=== PATIENT | female | born 1945 | race Caucasian/White ===

== ENCOUNTER 2019-03-21 10:50 | Day surgery (SDC) | payer MEDICARE, BC ==
[~2019-03-21] VITALS: Ht 154.9 cm; Wt 54.5 kg
[2019-03-21] VITALS (16 sets, daily range): BP systolic 100–125; BP diastolic 53–77
[~2019-03-21 10:50] MED LIST: CYAN10006 SQ; FOLI0.4T2 PO; LORA0.5T PO; MULT-1085 PO
[2019-03-21] MEDS ORDERED: normal saline 1000ml 1,000 ML IV SCH ×2 (11:05→14:04)
[2019-03-21] MEDS ORDERED: HYDR-3964 PO (11:19)
[2019-03-21 11:53] LABS: BASOPHILS % (AUTO) 0.5 % (0-1); EOSINOPHILS # (AUTO) 0.1 X10'3 (0-0.9); EOSINOPHILS % (AUTO) 1.2 % (0-6); HEMATOCRIT 34.9 % (35.0-45.0); HEMOGLOBIN 12.1 g/dl (12.0-16.0); LYMPHOCYTES # (AUTO) 1.3 X10'3 (1.1-4.8); LYMPHOCYTES % (AUTO) 29.7 % (21-51); MEAN CORPUSCULAR HEMOGLOBIN 32.6 PG (27.0-31.0); MEAN CORPUSCULAR HGB CONC 34.8 g/dL (33.0-36.5); MEAN CORPUSCULAR VOLUME 93.7 FL (78-98); MONOCYTES # (AUTO) 0.4 X10'3 (0-0.9); NEUTROPHILS # (AUTO) 2.7 X10'3 (1.8-7.7); NEUTROPHILS % (AUTO) 60.6 % (42-75); PLATELET COUNT 279 X10'3 (140-440); RED BLOOD COUNT 3.72 X10'6 (4.20-5.60); RED CELL DISTRIBUTION WIDTH 13.2 % (11.5-14.5); WHITE BLOOD COUNT 4.4 X10'3 (4.5-11.0)
[2019-03-21 12:01] LABS: ALBUMIN 3.7 G/DL (3.4-5.0); ANION GAP 7 (8-16); BLOOD UREA NITROGEN 14 MG/DL (7-18); BUN/CREATININE RATIO 14.4 (6.6-38.0); CALCIUM 9.6 MG/DL (8.5-10.1); CHLORIDE 103 MMOL/L (99-107); CREATININE 0.97 MG/DL (0.40-0.90); GLUCOSE 95 MG/DL (70-104); POTASSIUM 3.8 MMOL/L (3.5-5.1); SODIUM 139 MMOL/L (135-145); eGFR 56 ML/MIN
[2019-03-21] MEDS ORDERED: LIDOcaine 1%/PF 5ML 10 MG/ML VIAL SQ ONE (12:05)
[2019-03-21] MEDS ORDERED: midazolam 2 mg/2 ml injection IV PRN (12:05)
[2019-03-21] MEDS ORDERED: heparin sodium, porcine/PF 100unit/ml 5ML syringe ICATH ONE (12:05)
[2019-03-21] MEDS ORDERED: fentaNYL/PF 50MCG/1 ML 2ML syringe IV PRN (12:05)
[2019-03-21] MEDS ORDERED: LIDOcaine 1%/PF 5ML 10 MG/ML VIAL ONE (12:11)
[2019-03-21] MEDS ORDERED: heparin sodium, porcine/PF 100unit/ml 5ML syringe ONE (12:11)
[2019-03-21] MEDS ORDERED: midazolam 2 mg/2 ml injection ONE ×2 (12:12→13:12)
[2019-03-21] MEDS ORDERED: fentaNYL/PF 50MCG/1 ML 2ML syringe ONE ×2 (12:12→13:12)
[2019-03-21] MEDS ORDERED: HYDROcodone/acetaminophen 5mg/325mg tablet PO PRN ×2 (14:05)
--- NOTE | 2019-03-21 14:15 | NUR ---
REC' REPORT FROM JOSE ALFREDO CONKLIN-VSS-SITE CLEAR X2-BAND AID TO RT THORACIC/INCISION TO RT CHEST-NO BRUISING/DRAINAGE/SWELLING NOTED-PT DENIES PAIN/SOB/DIZZINESS Addendum: 03/21/19 at 1724 by Samanta Bonilla RN Amended: Links added.
== END 2019-03-21 16:10 | disposition home or self-care (01) ==
LOC: SSTAY O 10:50
PROVIDERS: ATTEND Radiology Vascular & Interventional Radiology
DX: C85.90 Non-Hodgkin lymphoma, unspecified, unspecified site (principal); C78.7 Secondary malignant neoplasm of liver and intrahepatic bile duct; Z85.118 Personal history of other malignant neoplasm of bronchus and lung; Z79.899 Other long term (current) drug therapy
CPT/HCPCS: 36415; 36561; 47000; 76937; 77001; 77012; 80048; 85025; 99152; J1642; J2250; J3010; J7030; 88184; 88185; 99153